=== PATIENT | female | born 1975 | race Hispanic/Latino ===

== ENCOUNTER 2020-06-04 08:46 | Emergency (ER) | payer SELFPAY ==
[2020-06-04] MEDS ORDERED: ONDANSETRON 4 MG/2 ML VIAL ONE (10:19)
[2020-06-04] MEDS ORDERED: NA CHLORIDE 0.9% 1,000 ML ONE (10:19)
[2020-06-04] MEDS ORDERED: MORPHINE 2 MG/ML SYR ONE (10:19)
[2020-06-04 10:22] LABS: Absolute Lymphocytes (CBC) 0.5 K/uL (0.7-4.9); Basophils % 0.3 % (0-1.3); Hematocrit 26.4 % (36.0-45.0); Lymphocytes % 14.2 % (15.3-44.8); MPV 7.4 fL (7.6-11.3); RBC Red Blood Cell Count 4.08 M/uL (3.86-4.86)
[2020-06-04 10:29] LABS: ALT/SGPT 18 U/L (12-78); AST/SGOT 24 U/L (15-37); Alkaline Phosphatase 66 U/L (45-117); BUN Blood Urea Nitrogen 7 mg/dL (7-18); Bicarbonate 30 mmol/L (21-32); Bilirubin Direct < 0.1 mg/dL (0-0.2); Bilirubin Total 0.2 mg/dL (0.2-1.0); Glucose Level 105 mg/dL (74-106); Lipase 111 U/L (73-393); Potassium 3.5 mmol/L (3.5-5.1); Protein, Total 7.6 g/dL (6.4-8.2); Sodium Level 138 mmol/L (136-145)
--- NOTE | 2020-06-04 10:54 | RAD REPORT ---
EXAM DESCRIPTION: CTAbdomen Pelvis W Contrast - 06/04/2020 10:14 am CLINICAL HISTORY: Abdominal pain. abdominal pain, vomiting COMPARISON: No comparisons TECHNIQUE: Biphasic CT imaging of the abdomen and pelvis was performed with 100 ml non-ionic IV cont rast. All CT scans are performed using dose optimization technique as appropriate and may include automated exposure control or mA/KV adjustment according to patient size. FINDINGS: Patchy opacity is present in both posterior lung bases. The liver, spleen, pancreas, adrenal glands and kidneys are within normal limits. No bowel obstruction, free air, free fluid or abscess. The appendix is normal. No evidence of signi ficant lymphadenopathy. No suspicious bony findings. IMPRESSION: Patchy opacity in both posterior lung bases suspicious for infiltrate/pneumonia.
--- NOTE | 2020-06-04 11:00 | RAD REPORT ---
EXAM DESCRIPTION: RAD - Chest Single View - 06/04/2020 10:47 am CLINICAL HISTORY: COUGH Chest pain. COMPARISON: No comparisons FINDINGS: Portable technique limits examination quality. The lungs are grossly clear. The heart is normal in size. No displaced fractures. IMPRESSION: No acute intrathoracic process suspected.
[2020-06-04] MEDS ORDERED: CEFTRIAXONE/SWI 1gm 1 GM/10 ML SYR ONE (11:31)
[2020-06-04] MEDS ORDERED: dexAMETHasone 10 MG/ML VIAL ONE (11:31)
[2020-06-04 11:41] LABS: Blood Morphology Comment NOTED (NOT SEEN); White Blood Cell Scan OK (OK)
[2020-06-04 11:42] LABS: Anisocytosis 2+; Hypochromasia 2+; Platelet Estimate ADEQ
--- NOTE | 2020-06-04 11:50 | EDPHYS ---
Physician Documentation [facility] Name: Radha Dockery Age: 45 yrs Sex: Female : 1975 Arrival Date: 06/04/2020 Time: 08:49 Bed 5 Private MD: ED Physician Rob Grace HPI: 06/04 09:58 This 45 yrs old Female presents to ER via Ambulatory with complaints of jmm Abdominal Pain, Vomiting, Headache. 09:58 The patient presents with abdominal pain. Onset: The symptoms/episode began/occurred jmm gradually, 2 week(s) ago. The symptoms do not radiate. Associated signs and symptoms: Pertinent positives: vomiting, Pertinent negatives: diarrhea. The symptoms are described as achy. This is a 45 year old female with no chronic medical conditions . 10:00 Modifying factors: The symptoms are alleviated by nothing, the symptoms are aggravated jmm by. The patient has not experienced similar symptoms in the past. 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 - Social history:: Smoking status: Patient denies any tobacco usage or history of. ROS: 10:00 Constitutional: Negative for fever, chills, and weight loss, Cardiovascular: Negative jmm for chest pain, palpitations, and edema, Respiratory: Negative for shortness of breath, cough, wheezing, and pleuritic chest pain. 10:00 Abdomen/GI: Positive for abdominal pain, vomiting. 10:00 All other systems are negative. Exam: 10:00 Constitutional: This is a well developed, well nourished patient who is awake, alert, jmm and in no acute distress. Head/Face: atraumatic. Eyes: EOMI, no conjunctival erythema appreciated ENT: Moist Mucus Membranes Neck: Trachea midline, Supple Chest/axilla: Normal chest wall appearance and motion. Cardiovascular: Regular rate and rhythm. No edema appreciated Respiratory: Normal respirations, no respiratory distress appreciated 10:00 Back: Normal ROM Skin: General appearance color normal MS/ Extremity: Moves all extremities, no obvious deformities appreciated, no edema noted to the lower extremities Neuro: Awake and alert, normal gait Psych: Behavior is normal, Mood is normal, Patient is cooperative and pleasant 10:00 Abdomen/GI: Inspection: abdomen appears normal, Bowel sounds: normal, Palpation: soft, mild abdominal tenderness, in all quadrants. Vital Signs: 08:55 BP 97 / 65; Pulse 89; Resp 16; Temp 98.3; Pulse Ox 100% on R/A; Pain 9/10; hb 11:42 BP 104 / 72; Pulse 80; Resp 16 S; Pulse Ox 98% on R/A; iw MDM: 09:30 Patient medically screened. [facility] 11:36 Data reviewed: vital signs, nurses notes. Counseling: I had a detailed discussion with [facility] the patient and/or guardian regarding: the historical points, exam findings, and any diagnostic results supporting the discharge/admit diagnosis, lab results, the need for outpatient follow up, to return to the emergency department if symptoms worsen or persist or if there are any questions or concerns that arise at home. 11:48 Data reviewed: lab test result(s), radiologic studies, CT scan. ED course: Patient is [facility] alert and non toxic in appearance in the ED. Patient is advised to follow up with pcp and otherwise given strict return precautions. Patient understood and agrees with the plan of care. . 06/04 09:50 Order name: Basic Metabolic Panel; Complete Time: 10:49 [facility] 06/04 09:50 Order name: CBC with Diff; Complete Time: 11:48 [facility] 06/04 09:50 Order name: Hepatic Function; Complete Time: 10:49 [facility] 06/04 09:50 Order name: Lipase; Complete Time: 10:49 [facility] 06/04 10:20 Order name: COVID-19 [facility] 06/04 10:26 Order name: CBC Smear Scan; Complete Time: 11:48 [facility] 06/04 09:50 Order name: IV Saline Lock; Complete Time: 10:08 [facility] 06/04 09:50 Order name: CT Abd/Pelvis - IV Contrast Only; Complete Time: 11:04 [facility] 06/04 10:20 Order name: Chest Single View XRAY; Complete Time: 11:04 [facility] 06/04 09:50 Order name: Labs collected and sent; Complete Time: 10:08 [facility] Administered Medications: 10:20 Drug: NS 0.9% 1000 ml Route: IV; Rate: 1 bolus; Site: left antecubital; sg 10:30 Drug: morphine 2 mg Route: IVP; Site: left antecubital; sg 10:30 Drug: Zofran (Ondansetron) 4 mg Route: IVP; Site: left antecubital; sg 11:42 Drug: Decadron - Dexamethasone 10 mg Route: IVP; Site: left antecubital; iw 11:42 Drug: Rocephin 1 grams Route: IV; Rate: calculated rate; Site: left antecubital; iw Disposition: 15:19 Co-signature as Attending Physician, Rob Grace MD I agree with the assessment and kdr plan of care. Disposition: 06/04/20 11:49 Discharged to Home. Impression: Pneumonia, Anemia. - Condition is Stable. - Discharge Instructions: Iron Deficiency Anemia, Adult, Anemia, Nonspecific, Community-Acquired Pneumonia, Adult. - Prescriptions for Ferrous Sulfate 325 mg (65 mg Iron) Oral Tablet - take 1 tablet by ORAL route every 8 hours; 90 tablet. Zithromax Z- Jagdish 250 mg Oral Tablet - take 1 tablet by ORAL route as directed for 5 days Day 1 - take two (2) tablets one time. Day 2, 3, 4 , 5 take one (1) tablet once daily.; 6 tablet. Zofran ODT 4 mg Oral tablet,disintegrating - place 1 tablet by TRANSLINGUAL route every 4-6 hours; 20 tablet. - Work release form, Medication Reconciliation Form, Thank You Letter, Antibiotic Education, Prescription Opioid Use form. - Follow up: Private Physician; When: 2 - 3 days; Reason: Recheck today's complaints, Continuance of care, Re-evaluation by your physician. Signatures: Dispatcher [employer] Irene Cary RN RN dm5 Dewayne Maldonado RN RN sg Rittger, Kevin, MD MD kdr Mickail, Joel, PA PA jmm Williams, Irene, RN RN Karmen Marcial RN RN Corrections: (The following items were deleted from the chart) 12:06 11:49 06/04/2020 11:49 Discharged to Home. Impression: Pneumonia; Anemia. Condition is dm5 Stable. Forms are Medication Reconciliation Form, Thank You Letter, Antibiotic Education, Prescription Opioid Use. Follow up: Private Physician; When: 2 - 3 days; Reason: Recheck today's complaints, Continuance of care, Re-evaluation by your physician. marilia
--- NOTE | 2020-06-04 11:50 | ER ---
Nurse's Notes [facility] Name: Radha Dockery Age: 45 yrs Sex: Female : 1975 Arrival Date: 06/04/2020 Time: 08:49 Bed 5 Private MD: Diagnosis: Pneumonia;Anemia Presentation: 06/04 08:55 Chief complaint: Abdominal pain, N/V, and headache x 2 weeks, worse over last few days. hb Coronavirus screen: Client presents with at least one sign or symptom that may indicate coronavirus-19. Standard/surgical mask placed on the client. Provider contacted for isolation considerations. Ebola Screen: No symptoms or risks identified at this time. Initial Sepsis Screen: Does the patient meet any 2 criteria? No. Patient's initial sepsis screen is negative. Does the patient have a suspected source of infection? No. Patient's initial sepsis screen is negative. Risk Assessment: Do you want to hurt yourself or someone else? Patient reports no desire to harm self or others. Onset of symptoms was May 24, 2020. 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 - Social history:: Smoking status: Patient denies any tobacco usage or history of. Screenin:43 Abuse screen: Denies threats or abuse. Denies injuries from another. Nutritional iw screening: No deficits noted. Tuberculosis screening: No symptoms or risk factors identified. Fall Risk None identified. Assessment: 10:20 General: Appears in no apparent distress. uncomfortable, slender, well groomed, well sg developed, well nourished, Behavior is calm, cooperative, appropriate for age, quiet. Pain: Complains of pain in abdomen, headache. Neuro: Level of Consciousness is awake, alert, obeys commands, Oriented to person, place, time, Speech is normal, Facial symmetry appears normal, Reports headache. Cardiovascular: Patient's skin is warm and dry. Chest pain is denied. Respiratory: Airway is patent Respiratory effort is even, unlabored, Respiratory pattern is regular, symmetrical. GI: Abdomen is flat, non-distended, Bowel sounds present X 4 quads. Abd is soft X 4 quads. : No signs and/or symptoms were reported regarding the genitourinary system. EENT: No deficits noted. Derm: Skin is pink, warm \T\ dry. Musculoskeletal: Circulation, motion, and sensation intact. Range of motion:. 11:43 Reassessment: Patient appears in no apparent distress at this time. Patient and/or iw family updated on plan of care and expected duration. Pain level reassessed. Patient is alert, oriented x 3, equal unlabored respirations, skin warm/dry/pink. Vital Signs: 08:55 BP 97 / 65; Pulse 89; Resp 16; Temp 98.3; Pulse Ox 100% on R/A; Pain 9/10; hb 11:42 BP 104 / 72; Pulse 80; Resp 16 S; Pulse Ox 98% on R/A; iw ED Course: 08:49 Patient arrived in ED. ds1 08:56 Triage completed. hb 08:57 Arm band placed on. hb 09:10 Carlos Nichols PA is PHCP. jm 09:10 Rob Grace MD is Attending Physician. jmm 10:04 Initial lab(s) drawn, by mn, sent to lab. Inserted saline lock: 20 gauge in left dh3 antecubital area, using aseptic technique. Blood collected. 10:10 Shaista Santos, RN is Primary Nurse. iw 10:14 CT Abd/Pelvis - IV Contrast Only In Process Unspecified. EDMS 10:20 Patient has correct armband on for positive identification. iw 10:47 Chest Single View XRAY In Process Unspecified. EDMS 12:05 No provider procedures requiring assistance completed. IV discontinued, intact, iw bleeding controlled, No redness/swelling at site. Pressure dressing applied. Administered Medications: 10:20 Drug: NS 0.9% 1000 ml Route: IV; Rate: 1 bolus; Site: left antecubital; sg 10:30 Drug: morphine 2 mg Route: IVP; Site: left antecubital; sg 10:30 Drug: Zofran (Ondansetron) 4 mg Route: IVP; Site: left antecubital; sg 11:42 Drug: Decadron - Dexamethasone 10 mg Route: IVP; Site: left antecubital; iw 11:42 Drug: Rocephin 1 grams Route: IV; Rate: calculated rate; Site: left antecubital; Outcome: 11:49 Discharge ordered by . marilia 12:05 Discharged to home ambulatory, with family. iw 12:05 Condition: good 12:05 Discharge instructions given to patient, family, Instructed on discharge instructions, follow up and referral plans. medication usage, Demonstrated understanding of instructions, follow-up care, medications, Prescriptions given X 2. 12:06 Patient left the ED. dm5 Addendum: 06/07/2020 15:37 Addendum: COVID-19 Result: Positive result giiven to ED physician to notify pt. a a5 Physician: Leihgton Landa MD Physician was able to contact pt and pt was notified of positive COVID-19 swab result. Physician answered pt questions. Signatures: Dispatcher [employer] EDMS Irene Ocampo RN RN dm5 Dewayne Maldonado RN RN Carlos Kraus PA PA jm Mesha Washington ds1 Shaista Santos RN RN Kirstie Lehman RN RN aa5 Karmen Marcial, Gillian Lehman RN 3
[2020-06-04 13:39] VITALS: TEMP 98.3
[2020-06-04 13:41] VITALS: BP 104/72; O2SAT 98
== END 2020-06-04 12:06 | disposition home or self-care (01) ==
LOC: ER 08:46
DX: U07.1 COVID-19 (principal); J18.9 Pneumonia, unspecified organism; D64.9 Anemia, unspecified
CPT/HCPCS: 36415; 71045; 74177; 80048; 80076; 82565; 83690; 85025; 96374; 96375; 99284; J0696; J1100; J2270; J2405; J7030; Q9967

== ENCOUNTER 2020-06-10 13:23 | Emergency (ER) | payer SELFPAY ==
[2020-06-10 18:56] LABS: Absolute Lymphocytes (CBC) 1.4 K/uL (0.7-4.9); Basophils % 0.8 % (0-1.3); Hematocrit 27.1 % (36.0-45.0); Lymphocytes % 20.4 % (15.3-44.8); MPV 7.5 fL (7.6-11.3); RBC Red Blood Cell Count 4.12 M/uL (3.86-4.86)
[2020-06-10 18:58] LABS: Protime INR 1.06
[2020-06-10] MEDS ORDERED: DIPHENHYDRAMINE 50 MG/ML VIAL ONE (19:00)
[2020-06-10] MEDS ORDERED: ONDANSETRON 4 MG/2 ML VIAL ONE (19:00)
[2020-06-10] MEDS ORDERED: METOCLOPRAMIDE 10 MG/2mL INJ ONE (19:00)
[2020-06-10] MEDS ORDERED: NA CHLORIDE 0.9% 1,000 ML ONE (19:01)
[2020-06-10] MEDS ORDERED: FAMOTIDINE 20 MG/2 ML VIAL IV ONE (19:01)
[2020-06-10 19:12] LABS: ALT/SGPT 18 U/L (12-78); AST/SGOT 15 U/L (15-37); Albumin 3.1 g/dL (3.4-5.0); Alkaline Phosphatase 59 U/L (45-117); BUN Blood Urea Nitrogen 9 mg/dL (7-18); Bicarbonate 31 mmol/L (21-32); Bilirubin Direct < 0.1 mg/dL (0-0.2); Bilirubin Total 0.2 mg/dL (0.2-1.0); Glucose Level 97 mg/dL (74-106); Lipase 120 U/L (73-393); Magnesium 2.4 mg/dL (1.8-2.4); Potassium 3.9 mmol/L (3.5-5.1); Protein, Total 7.8 g/dL (6.4-8.2); Sodium Level 137 mmol/L (136-145)
[2020-06-10 19:24] LABS: Urine Bacteria 20-50 /HPF (<20); Urine Culture Reflex Order REFLEXED; Urine RBC <5 /HPF (NONE SEEN)
--- NOTE | 2020-06-10 19:30 | RAD REPORT ---
EXAM DESCRIPTION: CT - Head Brain Wo Cont - 06/10/2020 7:15 pm CLINICAL HISTORY: Headache COMPARISON: None. TECHNIQUE: Computed axial tomography of the head was obtained. IV contrast was not requested. All CT scans are performed using dose optimization technique as appropriate and may include automated exposure control or mA/KV adjustment according to patient size. FINDINGS: An intracranial bleed is not seen . The ventricles are normal in caliber. No extra-axial fluid collection is noted. Fluid within the sinuses/ mastoids is not seen. IMPRESSION: No acute intracranial abnormality is seen. If patient's symptoms persist MRI of the bra in would be recommended.
[2020-06-10 19:50] LABS: Blood Morphology Comment NOTED (NOT SEEN); Hypochromasia 1+; Platelet Estimate INCR; White Blood Cell Scan OK (OK)
--- NOTE | 2020-06-10 19:53 | EDPHYS ---
Physician Documentation [facility] Name: Radha Dockery Age: 45 yrs Sex: Female : 1975 Arrival Date: 06/10/2020 Time: 13:24 Bed 18 Private MD: ED Physician Leighton Landa HPI: 06/10 18:00 This 45 yrs old Female presents to ER via Ambulatory with complaints of cp Abdominal Pain, Headache. 18:00 The patient presents with abdominal pain. Onset: The symptoms/episode began/occurred cp 2-3 weeks ago. Associated signs and symptoms: Pertinent positives: anorexia, headache, nausea, vomiting, Pertinent negatives: chest pain, fever, cough. 18:00 Patient diagnosed with COVID-19 infection last week. 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 - Social history:: Smoking status: Patient denies any tobacco usage or history of. ROS: 18:05 Constitutional: Negative for body aches, chills, fever. cp 18:05 Eyes: Negative for injury, pain, redness, and discharge. cp 18:05 ENT: Negative for ear pain, sore throat, difficulty swallowing, difficulty handling secretions. 18:05 Cardiovascular: Negative for chest pain, palpitations. 18:05 Respiratory: Negative for cough, shortness of breath, wheezing. 18:05 Abdomen/GI: Positive for abdominal pain, nausea, vomiting, anorexia, Negative for diarrhea, constipation, hematemesis, black/tarry stool, rectal bleeding. 18:05 Back: Negative for radiated pain. 18:05 : Negative for urinary symptoms, vaginal bleeding, vaginal discharge. 18:05 Neuro: Negative for altered mental status, dizziness, headache, syncope, weakness. 18:05 All other systems are negative. Exam: 18:08 Constitutional: The patient appears in no acute distress, alert, awake, non-toxic, well cp developed, well nourished. 18:08 Head/Face: Normocephalic, atraumatic. cp 18:08 Eyes: Periorbital structures: appear normal, Conjunctiva: normal, no exudate, no injection, Sclera: no appreciated abnormality, Lids and lashes: appear normal, bilaterally. 18:08 ENT: External ear(s): are unremarkable, Nose: is normal, Posterior pharynx: Airway: no evidence of obstruction, patent. 18:08 Neck: ROM/movement: is normal, is supple, without pain, no range of motions limitations, no meningismus, no nuchal rigidity. 18:08 Chest/axilla: Inspection: normal, Palpation: is normal, no crepitus, no tenderness. 18:08 Cardiovascular: Rate: normal, Rhythm: regular. 18:08 Respiratory: the patient does not display signs of respiratory distress, Respirations: normal, no use of accessory muscles, no retractions, labored breathing, is not present, Breath sounds: are clear throughout, no decreased breath sounds, no stridor. 18:08 Abdomen/GI: Inspection: abdomen appears normal, Bowel sounds: active, all quadrants, Palpation: soft, in all quadrants, mild abdominal tenderness, in the right upper quadrant and left upper quadrant, rebound tenderness, is not appreciated, voluntary guarding, is not appreciated, involuntary guarding, is not appreciated. 18:08 Neuro: Orientation: to person, place \T\ time. Mentation: is normal, Motor: moves all fours, strength is normal. Vital Signs: 14:08 BP 93 / 59; Pulse 68; Resp 18; Temp 97.2; Pulse Ox 100% on R/A; Weight 56.7 kg; Height dm5 5 ft. 0 in. (152.40 cm); Pain 8/10; 18:00 BP 92 / 57; Pulse 71; Resp 18 S; Pulse Ox 100% on R/A; ca1 19:00 BP 100 / 61; Pulse 66; Resp 18 S; Pulse Ox 100% on R/A; ca1 20:00 BP 99 / 55; Pulse 79; Resp 16 S; Pulse Ox 100% on R/A; ca1 14:08 Body Mass Index 24.41 (56.70 kg, 152.40 cm) dm5 MDM: 17:55 Patient medically screened. cp 18:00 Differential diagnosis: appendicitis, cholecystitis, Cholelithiasis, non-specific abd cp pain, pancreatitis, Pyelonephritis, Ureterolithiasis, urinary tract infection, migraine, dehydration, electrolyte abnormality. 19:51 Data reviewed: vital signs, nurses notes, lab test result(s), radiologic studies, CT cp scan, ultrasound. 19:51 Counseling: I had a detailed discussion with the patient and/or guardian regarding: the cp historical points, exam findings, and any diagnostic results supporting the discharge/admit diagnosis, lab results, radiology results, to return to the emergency department if symptoms worsen or persist or if there are any questions or concerns that arise at home. Response to treatment: the patient's symptoms have markedly improved after treatment, and as a result, I will discharge patient. 06/10 17:56 Order name: Basic Metabolic Panel; Complete Time: 19:26 06/10 19:26 Interpretation: Normal except: GFR 75. 06/10 17:56 Order name: CBC with Diff; Complete Time: 19:53 06/10 19:27 Interpretation: Normal except: WBC 6.7; HGB 8.3; HCT 27.1; MCV 65.8; MCH 20.1; MCHC cp 30.5; PLT 607; RDW 18.6; MPV 7.5. 06/10 17:56 Order name: Hepatic Function; Complete Time: 19:26 06/10 20:07 Interpretation: Normal except: ALB 3.1; GLOB 4.7; A/G 0.7. 06/10 17:56 Order name: Lipase; Complete Time: 19:26 06/10 17:56 Order name: Urine Microscopic Only; Complete Time: 19:26 06/10 19:37 Interpretation: Normal except: UBACT 20-50. 06/10 17:56 Order name: PT-INR; Complete Time: 19:26 06/10 17:56 Order name: Magnesium; Complete Time: 19:26 06/10 18:32 Order name: CT Head Brain wo Cont; Complete Time: 19:36 06/10 19:36 Interpretation: Report reviewed. 06/10 18:35 Order name: US Abdomen Limited: RUQ/epigastric area; Complete Time: 20:06 06/10 20:06 Interpretation: Report reviewed. 06/10 18:55 Order name: Urine --Ancillary (enter results) tt3 06/10 18:55 Order name: Urine Dipstick--Ancillary (enter results) tt3 06/10 19:25 Order name: Urine Culture EDMS 06/10 19:50 Order name: CBC Smear Scan; Complete Time: 19:53 EDMS 06/10 17:56 Order name: IV Saline Lock; Complete Time: 19:25 cp 06/10 17:56 Order name: Labs collected and sent; Complete Time: 18:52 cp 06/10 17:56 Order name: Urine Dipstick-Ancillary (obtain specimen); Complete Time: 18:52 cp 06/10 17:56 Order name: Urine Test (obtain specimen); Complete Time: 18:52 cp 06/10 19:36 Order name: PO challenge; Complete Time: 20:05 cp Administered Medications: 18:46 Drug: NS 0.9% 1000 ml Route: IV; Rate: 1 bolus; Site: right antecubital; ca1 19:58 Follow up: Response: No adverse reaction; IV Status: Completed infusion; IV Intake: ca1 1000ml 18:48 Drug: Pepcid 20 mg Route: IVP; Site: right antecubital; ca1 19:58 Follow up: Response: No adverse reaction ca1 18:50 Drug: Zofran (Ondansetron) 4 mg Route: IVP; Site: right antecubital; ca1 19:58 Follow up: Response: No adverse reaction; Nausea is decreased ca1 18:52 Drug: Benadryl 25 mg Route: IVP; Site: right antecubital; ca1 19:59 Follow up: Response: No adverse reaction; Pain is decreased ca1 18:54 Drug: Reglan 10 mg Route: IVP; Site: right antecubital; ca1 19:59 Follow up: Response: No adverse reaction; Pain is decreased ca1 19:59 Drug: Decadron - Dexamethasone 10 mg Route: IVP; Site: right antecubital; ca1 20:22 Follow up: Response: No adverse reaction ca1 20:05 Drug: TORadol - Ketorolac 15 mg Route: IVP; Site: right antecubital; ca1 20:25 Follow up: Response: No adverse reaction; Pain is decreased ca1 Disposition: 06/10/20 19:52 Discharged to Home. Impression: Headache, Anemia in chronic diseases classified elsewhere, Unspecified abdominal pain. - Condition is Stable. - Discharge Instructions: Abdominal Pain, Adult, Iron Deficiency Anemia, Adult, Anemia, Nonspecific, Iron-Rich Diet, General Headache Without Cause. - Prescriptions for Fiorinal 50- 325-40 mg Oral Capsule - take 1 capsule by ORAL route every 4 hours As needed - not to exceed 6 capsules per day; 20 capsule. - Medication Reconciliation Form, Thank You Letter, Antibiotic Education, Prescription Opioid Use form. - Follow up: Dylon Mims MD; When: 2 - 3 days; Reason: headache. - Problem is an ongoing problem. - Symptoms have improved. Addendum: 06/12/2020 07:14 Co-signature as Attending Physician, Leighton Landa MD. r n Signatures: Dispatcher [employer] EDVT Leighton Landa MD MD rn Thor Morales PA PA cp Monika Laura RN RN ca1 Corrections: (The following items were deleted from the chart) 06/10 20:26 19:52 06/10/2020 19:52 Discharged to Home. Impression: Headache; Anemia in chronic ca1 diseases classified elsewhere; Unspecified abdominal pain. Condition is Stable. Forms are Medication Reconciliation Form, Thank You Letter, Antibiotic Education, Prescription Opioid Use. Follow up: Dylon Mims; When: 2 - 3 days; Reason: headache. Problem is an ongoing problem. Symptoms have improved. cp
--- NOTE | 2020-06-10 19:53 | ER ---
Nurse's Notes [facility] Name: Radha Dockery Age: 45 yrs Sex: Female : 1975 Arrival Date: 06/10/2020 Time: 13:24 Bed 18 Private MD: Diagnosis: Headache;Anemia in chronic diseases classified elsewhere;Unspecified abdominal pain Presentation: 06/10 14:08 Chief complaint: Patient states: abdominal pain 2-3 weeks, see here last week for the dm5 same complaint. Dx with pnuemonia, anemia, COVID. Coronavirus screen: Client presents with at least one sign or symptom that may indicate coronavirus-19. Standard/surgical mask placed on the client. Client reports previous positive COVID test result. Ebola Screen: Patient negative for fever greater than or equal to 101.5 degrees Fahrenheit, and additional compatible Ebola Virus Disease symptoms Patient denies exposure to infectious person. Patient denies travel to an Ebola-affected area in the 21 days before illness onset. No symptoms or risks identified at this time. Initial Sepsis Screen: Does the patient meet any 2 criteria? No. Patient's initial sepsis screen is negative. Does the patient have a suspected source of infection? Yes: Acute abdominal pain Other: COVID, Pneumonia. Risk Assessment: Do you want to hurt yourself or someone else? Patient reports no desire to harm self or others. Onset of symptoms was June 04, 2020. 14:08 Method Of Arrival: Ambulatory 5 14:08 Acuity: FRANTZ 2 dm5 [employer]: 18:00 LMP N/A - Irregular menses ca1 Historical: - Allergies: 18:55 No Known Allergies; ca1 - PMHx: 18:55 None; ca1 - PSHx: 18:55 ; ca1 - Immunization history:: Adult Immunizations up to date, Flu vaccine is not up to date. - Social history:: Smoking status: Patient denies any tobacco usage or history of. Screenin:50 Abuse screen: Denies threats or abuse. Denies injuries from another. Nutritional ca1 screening: No deficits noted. Tuberculosis screening: No symptoms or risk factors identified. Fall Risk IV access (20 points). Assessment: 17:50 General: Appears in no apparent distress. comfortable, Behavior is calm, cooperative, ca1 appropriate for age. Pain: Complains of pain in abdomen Pain currently is 9 out of 10 on a pain scale. Neuro: Level of Consciousness is awake, alert, obeys commands, Oriented to person, place, time, situation. Cardiovascular: Heart tones S1 S2 present Capillary refill < 3 seconds Patient's skin is warm and dry. Pulses are all present. Respiratory: Airway is patent Respiratory effort is even, unlabored, Respiratory pattern is regular, symmetrical, Breath sounds are clear bilaterally. GI: Abdomen is flat, non-distended, Bowel sounds present X 4 quads. Abd is soft and non tender X 4 quads. : No signs and/or symptoms were reported regarding the genitourinary system. EENT: No signs and/or symptoms were reported regarding the EENT system. Derm: Skin is intact, is healthy with good turgor, Skin is pink, warm \T\ dry. Musculoskeletal: Circulation, motion, and sensation intact. Capillary refill < 3 seconds. 18:58 Reassessment: Patient appears in no apparent distress at this time. Patient and/or ca1 family updated on plan of care and expected duration. Pain level reassessed. Patient is alert, oriented x 3, equal unlabored respirations, skin warm/dry/pink. 20:24 Reassessment: Patient appears in no apparent distress at this time. Patient is alert, ca1 oriented x 3, equal unlabored respirations, skin warm/dry/pink. Patient states feeling better. Vital Signs: 14:08 BP 93 / 59; Pulse 68; Resp 18; Temp 97.2; Pulse Ox 100% on R/A; Weight 56.7 kg; Height dm5 5 ft. 0 in. (152.40 cm); Pain 8/10; 18:00 BP 92 / 57; Pulse 71; Resp 18 S; Pulse Ox 100% on R/A; ca1 19:00 BP 100 / 61; Pulse 66; Resp 18 S; Pulse Ox 100% on R/A; ca1 20:00 BP 99 / 55; Pulse 79; Resp 16 S; Pulse Ox 100% on R/A; ca1 14:08 Body Mass Index 24.41 (56.70 kg, 152.40 cm) 5 ED Course: 13:24 Patient arrived in ED. ag5 14:10 Triage completed. 5 17:43 Thor Morales PA is PHCP. cp 17:43 Leighton Landa MD is Attending Physician. cp 17:50 Patient has correct armband on for positive identification. Placed in gown. Bed in low ca1 position. Call light in reach. Side rails up X2. Pulse ox on. NIBP on. Warm blanket given. 18:00 Arm band placed on right wrist. ca1 18:19 Monika Laura, RN is Primary Nurse. ca1 18:35 Initial lab(s) drawn, by me, sent to lab. Missed attempt(s): 20 gauge in left ca1 antecubital area. Bleeding controlled, band aid applied, catheter tip intact. 18:45 Inserted saline lock: 22 gauge in right antecubital area, using aseptic technique. ca1 19:15 CT Head Brain wo Cont In Process Unspecified. EDMS 19:33 US Abdomen Limited: RUQ/epigastric area In Process Unspecified. EDMS 19:51 Dylon Mims MD is Referral Physician. cp 20:25 No provider procedures requiring assistance completed. IV discontinued, intact, ca1 bleeding controlled, No redness/swelling at site. Pressure dressing applied. Administered Medications: 18:46 Drug: NS 0.9% 1000 ml Route: IV; Rate: 1 bolus; Site: right antecubital; ca1 19:58 Follow up: Response: No adverse reaction; IV Status: Completed infusion; IV Intake: ca1 1000ml 18:48 Drug: Pepcid 20 mg Route: IVP; Site: right antecubital; ca1 19:58 Follow up: Response: No adverse reaction ca1 18:50 Drug: Zofran (Ondansetron) 4 mg Route: IVP; Site: right antecubital; ca1 19:58 Follow up: Response: No adverse reaction; Nausea is decreased ca1 18:52 Drug: Benadryl 25 mg Route: IVP; Site: right antecubital; ca1 19:59 Follow up: Response: No adverse reaction; Pain is decreased ca1 18:54 Drug: Reglan 10 mg Route: IVP; Site: right antecubital; ca1 19:59 Follow up: Response: No adverse reaction; Pain is decreased ca1 19:59 Drug: Decadron - Dexamethasone 10 mg Route: IVP; Site: right antecubital; ca1 20:22 Follow up: Response: No adverse reaction ca1 20:05 Drug: TORadol - Ketorolac 15 mg Route: IVP; Site: right antecubital; ca1 20:25 Follow up: Response: No adverse reaction; Pain is decreased ca1 Intake: 19:58 IV: 1000ml; Total: 1000ml. ca1 Outcome: 19:52 Discharge ordered by . cp 20:25 Discharged to home ambulatory, with significant other. ca1 20:25 Condition: stable 20:25 Discharge instructions given to patient, Instructed on discharge instructions, follow up and referral plans. medication usage, Demonstrated understanding of instructions, follow-up care, medications, Prescriptions given X 1. 20:26 Patient left the ED. ca1 Signatures: Dispatcher [employer] Irene Cary RN RN dm5 Thor Morales PA PA cp Acob, Cheryl, RN RN ca1 Han Dawkins ag5 Corrections: (The following items were deleted from the chart) 19:09 18:45 Inserted saline lock: 22 gauge in right antecubital area, using aseptic ca1 technique. Blood collected. ca1
--- NOTE | 2020-06-10 20:02 | RAD REPORT ---
EXAM DESCRIPTION: US - Abdomen Exam Limited - 06/10/2020 7:33 pm CLINICAL HISTORY: Abdominal pain. COMPARISON: None. FINDINGS: The gallbladder wall is not thickened. A gallstone is not seen. The biliary tree is normal caliber. IMPRESSION: Unremarkable gallbladder ultrasound.
[2020-06-10 20:12] LABS: Urine Blood TRACE (NEG); Urine Glucose NEGATIVE (NEG); Urine Protein NEGATIVE (NEG); Urine pH 6.5 (5.0-7.0)
[2020-06-10] MEDS ORDERED: KETOROLAC 30 MG/ML INJ ONE (20:15)
[2020-06-10] MEDS ORDERED: dexAMETHasone 10 MG/ML VIAL ONE (20:15)
[2020-06-11 04:15] VITALS: TEMP 97.2; O2SAT 100
[2020-06-11 04:21] VITALS: BP 99/55
== END 2020-06-10 20:26 | disposition home or self-care (01) ==
LOC: ER 13:23
DX: D64.9 Anemia, unspecified (principal); R51.9 Headache, unspecified; Z86.19 Personal history of other infectious and parasitic diseases
CPT/HCPCS: 36415; 70450; 76705; 80048; 80076; 81003; 81015; 81025; 83690; 83735; 85025; 85610; 87086; 87088; 96361; 96374; 96375; 99284; J1100; J1200; J2405; J2765; J7030